=== PATIENT | female | born 1965 | race Caucasian/White ===

== ENCOUNTER 2016-10-20 10:59 | Emergency (ER) | payer SELFPAY ==
[~2016-10-20] VITALS: Ht 162.6 cm; Wt 77.2 kg
[2016-10-20] MEDS ORDERED: ULTRAM50 MG PO (13:09)
[2016-10-20 13:46] VITALS: BP 116/75
== END 2016-10-20 13:56 | disposition home or self-care (01) ==
LOC: EME 10:59
DX: S01.81XA Laceration without foreign body of other part of head, initial encounter (principal); S63.285A Dislocation of proximal interphalangeal joint of left ring finger, initial encounter; W01.198A Fall on same level from slipping, tripping and stumbling with subsequent striking against other object, initial encounter; F17.200 Nicotine dependence, unspecified, uncomplicated
CPT/HCPCS: 70450; 70486; 73140; 99281; 99284; J3010; S0020